=== PATIENT | male | born 1980 | race Caucasian/White ===

== ENCOUNTER 2018-01-25 12:48 | Emergency (ER) | payer OTHER ==
[~2018-01-25] VITALS: Ht 180.3 cm; Wt 81.7 kg
[~2018-01-25 12:48] MED LIST: ALBU8HFA2 INH; AZIT250 PO; CEPH500 PO; CODACE30 PO; DOXY100 PO; ERYT.5TO OD; HYDACE10B PO; HYDACE5 PO; IBUP800 PO; NAPR500 PO; NAPR550 PO; NEOPOLHYDS OT; OXYACE5T PO; PENVK500 PO; RXOXYACE PO; TRAM50 PO; Ultram50 MG PO; Zofran4 MG PO
== END 2018-01-25 13:24 | disposition home or self-care (01) ==
LOC: ER 12:48
DX: S01.01XD Laceration without foreign body of scalp, subsequent encounter (principal); F17.200 Nicotine dependence, unspecified, uncomplicated

== ENCOUNTER 2020-03-16 14:06 | Emergency (ER) | payer SELFPAY ==
[~2020-03-16] VITALS: Ht 180.3 cm; Wt 83.9 kg
[~2020-03-16 14:06] MED LIST changes: +Cyclobenzaprine5 MG PO; +KETO10 PO; +Lotrimin AF113 GM TOP
[2020-03-16] MEDS ORDERED: Triamcinolone A15 GM TOP (15:58)
[2020-03-16] MEDS ORDERED: Prednisone20 MG PO (15:58)
== END 2020-03-16 16:17 | disposition home or self-care (01) ==
LOC: ER 14:06
DX: L25.9 Unspecified contact dermatitis, unspecified cause (principal); F17.210 Nicotine dependence, cigarettes, uncomplicated; Z79.899 Other long term (current) drug therapy
CPT/HCPCS: 99282

== ENCOUNTER 2023-05-06 01:29 | Emergency (ER) | payer OTHER ==
[~2023-05-06] VITALS: Ht 180.3 cm; Wt 83.9 kg
[~2023-05-06 01:29] MED LIST changes: +Prednisone20 MG PO; +Triamcinolone A15 GM TOP
[2023-05-06 01:36] VITALS: BP 105/79
[2023-05-06] MEDS ORDERED: Ibuprofen 600 MG Tab PO ONE (02:40)
[2023-05-06] MEDS ORDERED: Ibuprofen600 MG PO (02:49)
== END 2023-05-06 02:58 | disposition home or self-care (01) ==
LOC: ER 01:29
DX: S70.01XA Contusion of right hip, initial encounter (principal); X58.XXXA Exposure to other specified factors, initial encounter; F17.210 Nicotine dependence, cigarettes, uncomplicated; Z79.52 Long term (current) use of systemic steroids; Z79.899 Other long term (current) drug therapy
CPT/HCPCS: 73502; 99283-25; A9270

== ENCOUNTER 2023-09-06 06:29 | Emergency (ER) | payer OTHER ==
[~2023-09-06] VITALS: Ht 180.3 cm; Wt 79.4 kg
[~2023-09-06 06:29] MED LIST changes: +Ibuprofen600 MG PO
[2023-09-06] MEDS ORDERED: Ketorolac Tromethamine 30mg Vial IV ONE (07:25)
[2023-09-06 07:52] LABS: BASOPHILS ABSOLUTE AUTO 0.06 K/mm3 (0.00-0.23); BASOPHILS PERCENT AUTO 1 % (0-2); EOSINOPHILS ABSOLUTE AUTO 0.08 K/mm3 (0.00-0.68); EOSINOPHILS PERCENT AUTO 1 % (0-6); Hematocrit 39.6 % (37.0-53.0); Hemoglobin 12.5 g/dL (13.5-17.5); IMMATURE GRAN ABSOLUTE AUTO 0.03 K/mm3 (0.00-0.10); IMMATURE GRAN PERCENT AUTO 0 % (0-1); LYMPHOCYTES ABSOLUTE AUTO 2.05 K/mm3 (0.84-5.20); LYMPHOCYTES PERCENT AUTO 24 % (21-46); MONOCYTES ABSOLUTE AUTO 0.78 K/mm3 (0.16-1.47); MONOCYTES PERCENT AUTO 9 % (4-13); Mean Corpuscular HGB 26.1 pg (26.0-34.0); Mean Corpuscular HGB Conc 31.6 g/dL (31.5-36.5); Mean Corpuscular Volume 83 fL (80-100); NEUTROPHILS ABSOLUTE AUTO 5.69 K/mm3 (1.96-9.15); NEUTROPHILS PERCENT AUTO 66 % (41-73); Platelet Count 357 K/mm3 (150-400); RDW Coefficient Variation 14.6 % (11.7-14.2); RDW Standard Deviation 44.5 fL (35.1-46.3); Red Blood Cell Count 4.79 M/mm3 (4.30-5.90); White Blood Cell Count 8.69 K/mm3 (4.00-11.30)
[2023-09-06 08:09] LABS: Bun/Creatinine Ratio 29.8 (12.0-20.0); Calcium, Blood 9.1 mg/dL (8.5-10.1); Creatinine, Blood 0.84 mg/dL (0.60-1.20); Potassium, Blood 3.8 mmol/L (3.5-5.5)
[2023-09-06] MEDS ORDERED: CEPH500 PO (08:44)
[2023-09-06 08:54] VITALS: BP 126/99
== END 2023-09-06 08:48 | disposition home or self-care (01) ==
LOC: ER 06:29
PROVIDERS: Emergency Medicine
DX: L03.316 Cellulitis of umbilicus (principal); F17.210 Nicotine dependence, cigarettes, uncomplicated
CPT/HCPCS: 74177; 80048; 85025; 96374-59; 99284-25; J1885; Q9967

== ENCOUNTER 2024-12-08 20:55 | Emergency (ER) | payer OTHER ==
[~2024-12-08] VITALS: Ht 170.2 cm; Wt 63.5 kg
[2024-12-08] MEDS ORDERED: Ketorolac Tromethamine 15mg Vial IM ONE (22:15)
[2024-12-08 23:35] VITALS: BP 104/68
== END 2024-12-08 23:37 | disposition home or self-care (01) ==
LOC: ER 20:55
DX: S51.812A Laceration without foreign body of left forearm, initial encounter (principal); F17.210 Nicotine dependence, cigarettes, uncomplicated; Z23 Encounter for immunization; X58.XXXA Exposure to other specified factors, initial encounter
CPT/HCPCS: 12002; 90471; 90715; 96372-59; 99282-25; J1885